=== PATIENT | male | born 1975 | race Caucasian/White ===

== ENCOUNTER 2016-05-01 13:04 | Day surgery (SDC) | payer OTHER ==
[~2016-05-01] VITALS: Ht 180.3 cm; Wt 59.9 kg
[~2016-05-01 13:04] MED LIST: FLUO120C4 TOP; OXYB5SYR2 PO
[2016-05-01 13:55] VITALS: Ht 180.3 cm; Wt 59.9 kg
[2016-05-01 14:48] VITALS: BP 112/69; PULSE 74; RESP 22
[2016-05-01] MEDS ORDERED: PROPOFOL 40 ML ONE (15:03)
[2016-05-01] MEDS ORDERED: LIDOCAINE 2% (SDV) 5 ML INJ ONE (15:03)
[2016-05-01] MEDS ORDERED: PROPOFOL 20 ML ONE ×2 (15:48)
[2016-05-01 16:41] VITALS: BP 135/83; PULSE 68; RESP 13
--- NOTE | 2016-05-01 17:45 | GILP ---
DATE OF PROCEDURE: NAME OF PROCEDURE 1. Esophagogastroduodenoscopy and biopsy. 2. Colonoscopy, biopsy and polypectomy. SURGEON: Willi Hoffman MD PREOPERATIVE DIAGNOSES 1. Abdominal pain. 2. Change in bowel habits. 3. Weight loss. POSTOPERATIVE DIAGNOSES 1. Gastritis with erosions. 2. Gastric mucosal biopsies were taken for Helicobacter pylori test. 3. Colonoscopy all the way to the cecum. Poor prep making the exam suboptimal. 4. Multiple colon polyps. 5. Two of the polyps were removed using the snare and electrocautery. 6. Two other small polyps were removed using the biopsy forceps. 7. Internal hemorrhoids. INDICATION FOR THE PROCEDURE: Mr. Froylan Hall is a 40-year-old male patient who had upper abdominal pain and change in bowel habits, associated with weight loss. The patient was scheduled for endosco py and colonoscopy for further evaluation. The procedures and possible complications were well-explained to the patient, he understood and cons ented to the procedures. DESCRIPTION OF PROCEDURE: Under the influence of anesthesia, the gastroscope was carefully introduc ed into the esophagus. Under direct vision, it was advanced to the stomach and through the pylorus, into the duodenal bulb and descending duodenum. Findings: Esophagus: The mucosa was normal. Stomach: The patient had gastritis with erosions. Gastric mucosal biopsies were taken for H. pylor i test. Duodenum: Normal. The colonoscope was carefully introduced into the rectum, under direct vision, it was advanced all t he way to the cecum. Findings: The patient had poor prep making the exam suboptimal. The patient had multiple colon jordan yps; 1 polyp in the sigmoid colon, another 1 in the transverse colon, that were removed using the sn are and the electrocautery. Two other small polyps were removed using the biopsy forceps. The veronica ent was noted to have internal hemorrhoids. He tolerated the procedures very well and there was no complication from the procedures. At the end of the procedures, he was awake with stable vital signs and he was discharged home in the care of h is family. IMPRESSION 1. Gastritis with erosions. 2. Gastric mucosal biopsies were taken for Helicobacter pylori test. 3. Poor prep making the colonoscopy exam suboptimal. 4. Multiple colon polyps. 5. One sigmoid colon polyp and another one in the transverse colon that were removed using the snar e and the electrocautery. 6. Two other small polyps were removed using the biopsy forceps. 7. Internal hemorrhoids. PLAN 1. Omeprazole 40 mg p.o. q.a.m. 2. Await histopathology reports. 3. Because of the suboptimal nature of the exam, because of the poor prep, the patient will need re peat colonoscopy in 1 year. Dictated By: WILLI VIZCAINO/ALANA Conf#: [id number] DID#: [id number]
== END 2016-05-01 16:33 | disposition home or self-care (01) ==
LOC: GIL 13:04
PROVIDERS: ATTEND Internal Medicine Gastroenterology
DX: D12.5 Benign neoplasm of sigmoid colon (principal); K29.60 Other gastritis without bleeding; K63.5 Polyp of colon; K64.8 Other hemorrhoids
CPT/HCPCS: 43239; 45380; 45385; 87081; 88305; Z7610